=== PATIENT | female | born 1975 | race Caucasian/White ===

== ENCOUNTER → 2018-01-31 | Outpatient (CLI) | payer BC ==
[2018-01-31 09:57] LABS: BASO # 0.1 10^3/uL (0.0-0.2); BASO % 0.7 % (0.0-1.0); EOS # 0.2 10^3/uL (0.0-0.50); EOS % 3.2 % (0.0-3.0); HEMATOCRIT 40.3 % (36.0-47.0); HEMOGLOBIN 13.2 g/dl (12.0-15.5); IMMATURE GRANULOCYTE % 0.3 % (0-3.0); LYMPH # 1.6 10^3/uL (1.5-4.5); LYMPH % 21.4 % (24.0-44.0); MEAN CORPUSCULAR HEMOGLOBIN 30.3 pg (27.0-33.0); MEAN CORPUSCULAR HGB CONC 32.8 g/dl (32.0-36.5); MEAN CORPUSCULAR VOLUME 92.6 fl (80.0-96.0); MONO # 0.6 10^3/uL (0.0-0.8); MONO % 8.1 % (0.0-5.0); NEUTROPHILS # 4.9 10^3/uL (1.8-7.7); NEUTROPHILS % 66.3 % (36.0-66.0); PLATELET COUNT, AUTOMATED 171 10^3/uL (150-450); RED BLOOD COUNT 4.35 10^6/uL (4.00-5.40); RED CELL DISTRIBUTION WIDTH 13.2 % (11.5-14.5); WHITE BLOOD COUNT 7.4 10^3/uL (4.0-10.0)
[2018-01-31 10:18] LABS: ESTIMATED AVERAGE GLUCOSE 88 MG/DL (60-110); HEMOGLOBIN A1c 4.7 %
[2018-01-31 10:30] LABS: ERYTHROCYTE SEDIMENTATION RATE 2 mm/hr (0-20)
[2018-01-31 11:14] LABS: ALBUMIN 3.9 GM/DL (3.2-5.2); ALBUMIN/GLOBULIN RATIO 1.08 (1.00-1.93); ALKALINE PHOSPHATASE 61 U/L (45-117); ALT/SGPT 39 U/L (12-78); ANION GAP 8 MEQ/L (8-16); AST/SGOT 29 U/L (7-37); BILIRUBIN,TOTAL 0.4 MG/DL (0.2-1.0); BLOOD UREA NITROGEN 22 MG/DL (7-18); CALCIUM LEVEL 9.1 MG/DL (8.5-10.1); CARBON DIOXIDE LEVEL 22 MEQ/L (21-32); CHLORIDE LEVEL 113 MEQ/L (98-107); CREATININE FOR GFR 1.12 MG/DL (0.55-1.30); GLOMERULAR FILTRATION RATE 56.3 (>58); GLUCOSE, FASTING 71 MG/DL (70-100); POTASSIUM SERUM 4.6 MEQ/L (3.5-5.1); RHEUMATOID FACTOR QUANT < 10.0 IU/ML (<15.0); SODIUM LEVEL 143 MEQ/L (136-145); THYROID STIMULATING HORMONE 0.622 uIU/ML (0.358-3.740); TOTAL PROTEIN 7.5 GM/DL (6.4-8.2)
[2018-01-31 12:52] LABS: FOLATE > 24.0 NG/ML; VITAMIN B12 LEVEL 776 PG/ML
[2018-01-31 13:12] LABS: ALBUMIN 4.45 GM/DL (3.29-5.55); ALBUMIN % 59.3 % (55.8-66.1); ALPHA-1-GLOBULIN % 4.8 % (2.9-4.9); ALPHA-1-GLOBULINS 0.36 GM/DL (0.17-0.41); ALPHA-2-GLOBULINS 0.87 GM/DL (0.42-0.99); ALPHA-2-GLOBULINS % 11.6 % (7.1-11.8); BETA-1-GLOBULINS % 7.9 % (4.7-7.2); GAMMA GLOBULIN % 11.4 % (11.1-18.8)
[2018-01-31 13:13] LABS: BETA-1-GLOBULINS 0.59 GM/DL (0.28-0.60); BETA-2-GLOBULINS 0.38 GM/DL (0.19-0.55); GAMMA GLOBULINS 0.86 GM/DL (0.65-1.58)
[2018-02-01 09:52] LABS: DRVV SCREEN 45.6 SEC
[2018-02-01 09:53] LABS: PTT LUPUS TYPE ANTICOAG SCREEN 1.1 (0-1.2)
[2018-02-03 14:15] LABS: VITAMIN B1 LEVEL WHOLE BLOOD 198.7 nmol/L (66.5-200.0); VITAMIN B6,PYRIDOXAL PHOSPHATE 91.1 ug/L (2.0-32.8)
== END ==
LOC: M LAB 08:39
DX: G44.40 Drug-induced headache, not elsewhere classified, not intractable (principal); R41.3 Other amnesia
CPT/HCPCS: 82746

== ENCOUNTER → 2018-07-26 | Outpatient (CLI) | payer BC ==
[2018-07-27 10:28] LABS: HEPATITIS C VIRUS ABY INDEX < 0.0 INDEX (<0.8)
[2018-07-27 10:28] LABS: HEPATITIS B SURFACE ANTIBODY POSITIVE (POSITIVE); HIV 1&2 SCREEN CENTAUR NEGATIVE (NEGATIVE)
== END ==
LOC: M LAB 08:30
DX: Z11.3 Encounter for screening for infections with a predominantly sexual mode of transmission (principal)
CPT/HCPCS: 87340

== ENCOUNTER → 2018-07-28 | Outpatient (CLI) | payer BC | LOC: M LAB 12:01 | DX: Z11.3 Encounter for screening for infections with a predominantly sexual mode of transmission (principal) ==

== ENCOUNTER → 2019-03-23 | Outpatient (CLI) | payer BC ==
[~2019-03-23] MED LIST: ATIV1TAB10 PO; COQ-100C5 PO; CORL1.7T PO; CYCL10TA PO; GNP250TA9 PO; NADO40TA PO; PARAIUD IU; PROB250C PO; RA M500C PO; SERT-155 PO; TRAM50TA2 PO; VITA100018 PO; VITA100T98 PO; VITA500054 PO; ZONE1CAP PO
--- NOTE | 2019-03-26 12:57 | RADONC ---
RADIATION ONCOLOGY CONSULTATION NOTE DATE: 03/23/2019 CHART NUMBER: [id number] DIAGNOSIS: Left breast cancer. STAGE: T1c, N0, grade 3, ER positive, [place] positive, HER2 positive, who is presenting to us today status post lumpectomy and sentinel lymph node biopsy followed by re-excision and subsequent systemic therapy with paclitaxel weekly and Herceptin, who is scheduled for her last chemotherapy on April 07, and is now presenting to us for discussion of postoperative radiation therapy for conservative breast management. HISTORY OF PRESENT ILLNESS: The patient was in her usual state of health, until screening mammography was done on 09/23/2018. This showed suspicious microcalcifications in the left breast. Subsequent imaging confirmed the suspicious area in the upper outer quadrant of the left breast. The patient subsequently underwent a left breast biopsy on 10/14/2018, which showed invasive ductal carcinoma which was poorly differentiated. On 11/14/2018, the patient underwent lumpectomy and sentinel lymph node biopsy. Pathology revealed a 1.5 cm, poorly differentiated invasive ductal carcinoma. No lymph vascular invasion was identified. The distance to the closest margin was less than 0.5 mm. A total of four sentinel lymph nodes were sampled, and all were negative for metastatic disease. The tumor was estrogen receptor and progesterone receptor positive and HER2 positive as well. On 12/05/2017, the patient underwent re-excision, and no residual malignancy was found. Subsequent to surgery, the patient was seen by medical oncology and has been treated with weekly paclitaxel and Herceptin daily q. 3 weeks. She is scheduled for her last paclitaxel on April 07 and is now presenting to us for consideration of postoperative radiation therapy in an attempt to achieve local control. PAST MEDICAL HISTORY: The patient's past medical history is positive for cardiomyopathy, general heart disease, and hypertension. ALLERGIES: The patient is ALLERGIC to PENICILLIN. SOCIAL HISTORY: The patient quit smoking in 2014. She had smoked half-a-pack of cigarettes per day for 5 or 10 years. She does not abuse alcohol. FAMILY HISTORY: The patient's family history is positive for grandfather with mesothelioma. REVIEW OF SYSTEMS: The patient's review of systems is positive for occasional dizziness and headaches as well as decreased energy. It is otherwise noncontributory. She denies nausea, vomiting, fevers, chills, night sweats, diplopia, headaches, anxiety or depression, anorexia, weight loss, visual disturbances, chest pain, urinary or bowel difficulties, bone pain, or neurological problems. PHYSICAL EXAMINATION: The patient is a well-developed, well-nourished female in no acute distress. HEENT exam is normocephalic, atraumatic. Extraocular movements are intact. There is no palpable cervical, supraclavicular, infraclavicular, axillary, or inguinal lymphadenopathy present. Lungs are clear to auscultation and percussion. Heart has a regular rate and rhythm. Abdomen is benign with no hepatosplenomegaly, masses, or tenderness. Breast examination reveals no masses or discharge bilaterally. Skeletal examination reveals no tenderness to pressure or percussion of the bony skeleton. Extremities reveal no clubbing, cyanosis, or edema. Neurologic exam is grossly intact, as is the remainder of the physical examination. ASSESSMENT: Clearly, the patient is a candidate for external beam radiation therapy, and I have so informed her. I have discussed with the patient in detail the potential benefits as well as possible acute and chronic sequelae of external beam radiation therapy. We discussed the logistics of treatment planning, simulation, subsequent fractionated daily radiation treatments. I have scheduled the patient for simulation, approximately 2-3 weeks following her last paclitaxel treatment. Subsequent treatment planning will be undertaken, and radiation will begin after that. Thank you for allowing us to participate in the care of this very pleasant woman. If I could be of any further assistance or provide you with any information, please feel free to contact me anytime. cc: MD Ralph Ahuja MD Nancy Spicer, HAILEY Dean DO
== END ==
LOC: M ONCR 09:01
PROVIDERS: ATTEND Radiology Radiation Oncology
DX: C50.912 Malignant neoplasm of unspecified site of left female breast (principal); Z92.21 Personal history of antineoplastic chemotherapy

== ENCOUNTER 2019-05-01 10:21 | Outpatient (RCR) | payer BC ==
[~2019-05-01 10:21] MED LIST changes: +PARA1IUD IU; -PARAIUD IU; -SERT-155 PO; +SERT50TA29 PO
--- NOTE | 2019-05-02 08:30 | RADONC ---
RADIATION ONCOLOGY SIMULATION NOTE DATE: 05/01/2019 Chart #: [id number] DIAGNOSIS: Left breast cancer. STAGE: I C, N0M0, grade 3, ER positive, [place] positive, HER2/tuyet positive. SIMULATION NOTE: Mr. Nelson was taken to the CT scan for CT simulation of her left breast field. CT was accomplished without difficulty or discomfort. Radiation treatment planning is underway and radiation treatments will begin subsequently. An immobilization device was created without difficulty or discomfort. It will be used throughout the course of treatment. I was physically present throughout the course of CT simulation.
== END 2019-05-03 ==
LOC: M ONCR 10:21
PROVIDERS: ATTEND Radiology Radiation Oncology
DX: C50.912 Malignant neoplasm of unspecified site of left female breast (principal)

== ENCOUNTER 2019-06-02 10:53 | Outpatient (RCR) | payer BC ==
--- NOTE | 2019-05-17 09:43 | RADONC ---
RADIATION ONCOLOGY PROGRESS NOTE DATE: 05/15/2019 CHART NUMBER: [id number] PROGRESS NOTE: Ms. Nelson with a diagnosis of left breast cancer stage I C, grade 3, ER, [place] and HER2/tuyet positive is currently receiving local regional radiotherapy. Her dose to date is 720 cGy of a proposed 4860 cGy. She has no complaints referable to her disease or to her radiation therapy. REVIEW OF SYSTEMS: She denies any nausea, vomiting, coughing, sputum production, or hemoptysis. Her energy level is diminished because she is receiving Taxol and Herceptin. She denies any skin irritation or bone pain. Her energy level is such that she is able to maintain most day-to-day activities without any alteration of her lifestyle. EXAMINATION FINDINGS; She is a well-nourished, well-developed female, in no acute distress. Skin: Skin within the irradiated volume shows neither erythema nor desquamation. Lymphatics: No palpable peripheral lymphadenopathy is appreciated. Lungs are clear. The remainder of the physical examination is unchanged. IMPRESSION: Tolerating therapy well. PLAN: Treatments to continue.
--- NOTE | 2019-05-24 14:42 | RADONC ---
RADIATION ONCOLOGY PROGRESS NOTE DATE: 05/22/2019 CHART NUMBER: [id number] PROGRESS NOTE: Ms. Nelson is presently at a dose of 1620 cGy to her left breast and is tolerating treatments quite well at this point with no complaints related to her radiation therapy. She is having no breast or bone pain. REVIEW OF SYSTEMS: The patient's review of systems is noncontributory. Denies nausea, vomiting, fevers, chills, night sweats, diplopia, headaches, anxiety or depression, anorexia, weight loss, visual disturbances, chest pain, urinary or bowel difficulties, bone pain, or neurological problems. PHYSICAL EXAMINATION: The patient's skin is in good condition with no evidence of moist or dry desquamation. The remainder of her physical exam remains unchanged. Ms. Nelson is tolerating treatments quite well and radiation will continue as scheduled.
--- NOTE | 2019-05-31 07:03 | RADONC ---
RADIATION ONCOLOGY PROGRESS NOTE DATE: 05/29/2019 CHART NUMBER: [id number] Ms. Jean is thus far at a dose of 2520 centigrade to her left breast and is tolerating treatments quite well at this point with no complaints related to her radiation therapy. REVIEW OF SYSTEMS: The patient's review of systems is noncontributory. She denies nausea, vomiting, fevers, chills, night sweats, diplopia, headaches, anxiety or depression, anorexia, weight loss, visual disturbances, chest pain, urinary or bowel difficulties, bone pain, or neurological problems. PHYSICAL EXAMINATION: The patient's skin is in good condition with no evidence of moist or dry desquamation. The remainder of her physical exam remains unchanged. Ms. Jean is tolerating treatments quite well and radiation will continue as scheduled.
[~2019-06-02 10:53] MED LIST changes: -PARA1IUD IU; +PARAIUD IU; +SERT-155 PO; -SERT50TA29 PO
== END 2019-06-03 ==
LOC: M ONCR 10:53
PROVIDERS: ATTEND Radiology Radiation Oncology
DX: C50.412 Malignant neoplasm of upper-outer quadrant of left female breast (principal)

== ENCOUNTER 2019-06-26 11:00 | Outpatient (RCR) | payer BC ==
--- NOTE | 2019-06-07 08:36 | RADONC ---
RADIATION ONCOLOGY PROGRESS NOTE DATE: 06/06/2019 CHART NUMBER: [id number] PROGRESS NOTE: Mrs. Nelson with a stage T1cN0, grade 3, ER positive, [place] positive, HER2/tuyet positive is presently receiving adjuvant radiation. Her current dose is Dictation ended
--- NOTE | 2019-06-07 09:23 | RADONC ---
RADIATION ONCOLOGY PROGRESS NOTE DATE: 06/06/2019 CHART NUMBER: [id number] Mrs. Nelson with a diagnosis of left breast cancer stage T1cN0, grade 3, ER positive, [place] positive, HER2/tuyet positive is currently receiving adjuvant radiotherapy. Her dose to date is 3420 cGy of her proposed 4860 cGy with a proposed boost thereafter. Thus far she appears to be doing relatively well with regards to her treatment and to her disease. She denies any significant problems such as nausea, vomiting, cough. Her energy level is satisfactory and she is able to maintain most day-to-day activities without any alteration of her lifestyle. Skin irritation is very minimal. Examination findings: The skin within the irradiated volume shows a minimal erythematous blush without focal desquamation. Lymphatics: There is no palpable peripheral lymphadenopathy. Lungs: Clear. The remainder of the physical examination is unchanged. IMPRESSION: Tolerating therapy well. PLAN: Treatments to continue. Thank you for allowing us the opportunity of participation in the management of this lady.
--- NOTE | 2019-06-10 13:01 | RADONC ---
RADIATION ONCOLOGY ELECTRON BEAM BOOST SIMULATION DATE: 06/09/2019 CHART NUMBER: [id number] Electron beam simulation to boost the area of the lumpectomy site. The patient was placed in her usual treatment position with her arms above her head and the area of lumpectomy site which we are intending to boost was outlined by me personally. A special serving molding device will be constructed in order to shape the treatment hines. The appropriate table locations and gantry angles were also well documented. The patient tolerated this procedure quite well with no significant untoward events. I was present during the entire electron beam simulation. She will receive her boost treatment to the lumpectomy scar site as per protocol.
--- NOTE | 2019-06-12 13:51 | RADONC ---
RADIATION ONCOLOGY PROGRESS NOTE DATE: 06/12/2019 CHART #: [id number] Cordell Jean with left breast cancer is currently receiving local regional radiotherapy and she has achieved a dose thus far of 4140 cGy of a proposed 4860 cGy. There will be a 1200 cGy boost given to the lumpectomy scar site thereafter. She is tolerating her therapy reasonably well with the exception of some skin erythema. She denies any nausea, vomiting, coughing, sputum production or hemoptysis. Her energy level is satisfactory and she is able to maintain most day-to-day activities without any alteration of her lifestyle. She does note skin irritation most prominent in the inframammary fold, but also in the upper outer quadrant of the left breast. The erythema is itchy and bothersome to the patient and she has been putting hydrocortisone cream and perhaps even some other ointments on the affected area, but they have been short lived and she was wondering if there were any other creams which are more effective. I have taken the liberty of calling in her prescription to [facility] for some Silvadene cream for her to use twice daily. The remainder of the review of systems is negative. EXAMINATION FINDINGS: The skin within the irradiated volume shows indeed an erythematous blush in the inframammary fold and in the upper outer quadrant of the left breast. There is no desquamation thus far, but it looks as though there will be before the completion of her radiotherapy. Therefore, we encourage her use of this antibiotic cream. There is no palpable peripheral lymphadenopathy. Lungs are clear. Heart: Regular. Abdomen: Without evidence of hepatomegaly, masses, deep abdominal tenderness. IMPRESSION: The patient appears to be tolerating her radiotherapy reasonably well. PLAN: We have ordered a prescription for Silvadene for the patient to use twice daily to prevent further progression and perhaps even to avoid any moist desquamation/infection.
--- NOTE | 2019-06-21 12:54 | RADONC ---
RADIATION ONCOLOGY PROGRESS NOTE DATE OF SERVICE: 06/19/2019 CHART NUMBER: [id number]. PROGRESS NOTE: Ms. Jean is presently at a dose of 5060 cGy to her left breast primary site and is tolerating treatments quite well at this point with no significant difficulties related to her radiation therapy. She does have some bilateral rib and knee discomfort. REVIEW OF SYSTEMS: The patient's review of systems is generally noncontributory except for some arthritic-type pain. She denies nausea, vomiting, fevers, chills, night sweats, diplopia, headaches, anxiety or depression, anorexia, weight loss, visual disturbances, chest pain, urinary or bowel difficulties, bone pain, or neurological problems. PHYSICAL EXAMINATION: The patient's skin shows erythema and tanning present. The remainder of her physical exam remains unchanged. Ms. Jean is tolerating treatments quite well, and radiation will continue as scheduled.
--- NOTE | 2019-06-27 16:27 | RADONC ---
RADIATION ONCOLOGY TREATMENT SUMMARY DATE: 06/26/2019 CHART NUMBER: [id number] DIAGNOSIS: Left breast cancer. STAGE: T1c, pN0, M0, grade 3, HER2/tuyet positive, ER positive, [place] positive. ECOG PERFORMANCE STATUS: 0 CONSULTATION NOTE: Ms. Nelson is a very pleasant, 43-year-old white female with the diagnosis of a stage T1c, N0, M0, ER positive, [place] positive, HER2/tuyet negative poorly differentiated invasive ductal carcinoma of the left breast who presented to us status post lumpectomy, sentinel lymph node biopsy followed by re-excision and subsequent systemic therapy with weekly paclitaxel and Herceptin for consideration of postoperative radiation therapy for conservative breast management. We treated the patient to her left breast for a total dose of 4860 cGy delivered in 27 fractions of 180 cGy each over 37 elapsed days from 05/10/2019 through 06/16/2019. The patient's left breast was treated on a linear accelerator utilizing a 3-D conformal technique with utilizing a 6X photon beam. Medial and lateral tangential hines were utilized. Following completion of 4860 cGy the entire left breast, the primary site was boosted for an additional 1200 cGy delivered in six fractions of 200 cGy each over seven elapsed days from 06/19/2019 through 06/26/2019. The primary site boost was treated on a linear accelerator utilizing a 12 MeV electron beam prescribed to the 90% isodose line via non phos technique. This brought the primary site to a total dose of 6060 cGy delivered in 33 fractions over 44 for elapsed days from 05/10/2019 through 06/26/2019. Ms. Nelson tolerated her treatments quite well and was able complete therapy as prescribed without interruption. The patient is scheduled to see me again in 1 month for further followup. She will also continue to be followed by her other physicians as well. cc: MD Ralph Ahuja MD Nancy Spicer, HAILEY Dean DO
== END 2019-07-03 ==
LOC: M ONCR 11:00
PROVIDERS: ATTEND Radiology Radiation Oncology
DX: C50.412 Malignant neoplasm of upper-outer quadrant of left female breast (principal)

== ENCOUNTER → 2019-07-26 | Outpatient (CLI) | payer BC ==
[~2019-07-26] MED LIST changes: +PARA1IUD IU; -PARAIUD IU; -SERT-155 PO; +SERT50TA29 PO
--- NOTE | 2019-07-27 08:41 | RADONC ---
RADIATION ONCOLOGY FOLLOWUP NOTE DATE: 07/26/2019 CHART NUMBER: [id number] DIAGNOSIS: Left breast cancer. STAGE: T1c pathologic N0, M0, grade 3, HER2/tuyet positive, ER positive, [place] positive. ECOG PERFORMANCE STATUS: 0 FOLLOWUP NOTE: The patient returns from having received adjuvant left breast radiotherapy. She claims that things have been going well as she feels her energy has significantly improved and she denies any nausea, vomiting, coughing, sputum production or hemoptysis. Her energy level is such that she is able to maintain many day-to-day activities without any alteration of her lifestyle. Her skin has completely healed. EXAMINATION FINDINGS: The skin within the irradiated volume shows no evidence of erythema and certainly no focal desquamation. Lungs are clear to auscultation and percussion. Heart: Regular without murmurs. Abdomen: Without evidence of hepatomegaly, masses, deep abdominal tenderness. Breasts: Bilaterally symmetric with no palpable masses. Extremities: Without cyanosis, clubbing or edema. Neurologic: Examination grossly physiologic and nonfocal. IMPRESSION: The patient has done well with her radiation therapy with almost complete resolution of all skin irritation. She continues to see Mohini Paulson and Gold Dean and continues to receive Herceptin. She also sees India Peacock and Ralph Hirsch. We will see her on a p.r.n. basis at this clinic, but she was instructed to continue her routine followup visits with the aforementioned referring physicians. Thank you for allowing us the opportunity of participation in the management of this very cali patient. cc: MD Ralph Ahuja MD Nancy Spicer, HAILEY Dean, DO ABURTOD
== END ==
LOC: M ONCR 10:55
PROVIDERS: ATTEND Radiology Radiation Oncology
DX: C50.412 Malignant neoplasm of upper-outer quadrant of left female breast (principal); Z92.3 Personal history of irradiation

== ENCOUNTER → 2019-09-13 | Outpatient (REF) | payer BC ==
[2019-09-14 00:01] LABS: C REACTIVE PROTEIN QUANTITATIV < 0.30 MG/DL (0.00-0.30); RHEUMATOID FACTOR QUANT < 10.0 IU/ML (<15.0); URIC ACID 5.8 MG/DL (2.6-6.0)
[2019-09-16 00:08] LABS: ANTINUCLEAR ANTIBODIES DIRECT Negative (Negative); CYCLIC CITRULLINATED PEPTIDE 6 units (0-19)
== END ==
LOC: M LAB REF 17:04
PROVIDERS: ATTEND Nurse Practitioner Adult Health
DX: M19.90 Unspecified osteoarthritis, unspecified site (principal); M35.9 Systemic involvement of connective tissue, unspecified

== ENCOUNTER 2021-08-20 11:39 | Outpatient (CLI) | payer OTHER ==
[~2021-08-20] VITALS: Ht 165.1 cm; Wt 68.0 kg
[~2021-08-20 11:39] MED LIST changes: +ACETAMINOPHEN TAB 650MG DOSE (2X325MG) PO ONE; +ALBUTEROL 90 MCG/ACT 8GM HFA INHALER INH PRN; +ALBUTEROL SULFATE 2.5 MG/0.5 ML INH NEB SOLN INH PRN; +CASIRIVIMAB/IMDEVIMAB 1,200 MG in NS 250 ML IV ONE; +CYCL-707 PO; -CYCL10TA PO; +EPINEPHrine INJ 1 MG/ML 1ML AMP IM PRN; +NS 1,000 ML IV SCH; +diphenhydrAMINE 50MG CAP PO ONE; +diphenhydrAMINE 50MG/ML VIAL (J1200) IV PRN; +methylPREDNISolone 125MG 2ML VIAL IV PRN
[2021-08-20 12:07] VITALS: BP 117/60
[2021-08-20 12:37] VITALS: BP 120/63
[2021-08-20 13:07] VITALS: BP 115/56
[2021-08-20 14:07] VITALS: BP 126/60
== END 2021-08-20 14:07 | disposition home or self-care (01) ==
LOC: M OPCLI4PR 11:39
PROVIDERS: ATTEND Nurse Practitioner Adult Health
DX: U07.1 COVID-19 (principal); Z88.0 Allergy status to penicillin; Z91.040 Latex allergy status

== ENCOUNTER → 2021-11-19 | Outpatient (CLI) | payer OTHER ==
[~2021-11-19] MED LIST changes: -ACETAMINOPHEN TAB 650MG DOSE (2X325MG) PO ONE; -ALBUTEROL 90 MCG/ACT 8GM HFA INHALER INH PRN; -ALBUTEROL SULFATE 2.5 MG/0.5 ML INH NEB SOLN INH PRN; -CASIRIVIMAB/IMDEVIMAB 1,200 MG in NS 250 ML IV ONE; -EPINEPHrine INJ 1 MG/ML 1ML AMP IM PRN; -NS 1,000 ML IV SCH; -diphenhydrAMINE 50MG CAP PO ONE; -diphenhydrAMINE 50MG/ML VIAL (J1200) IV PRN; -methylPREDNISolone 125MG 2ML VIAL IV PRN
== END ==
LOC: M WUC 12:01
PROVIDERS: ATTEND Nurse Practitioner Adult Health
DX: R05.9 Cough, unspecified (principal)

== ENCOUNTER → 2023-01-04 | Outpatient (REF) | payer OTHER | LOC: M SFHCWAGY 17:48 | PROVIDERS: ATTEND Advanced Practice Midwife | DX: Z12.4 Encounter for screening for malignant neoplasm of cervix (principal); R87.610 Atypical squamous cells of undetermined significance on cytologic smear of cervix (ASC-US) | CPT/HCPCS: 87624; G0123 ==

== ENCOUNTER → 2023-02-02 | Outpatient (CLI) | payer OTHER | LOC: M WHC 10:31 | PROVIDERS: ATTEND Internal Medicine | DX: C50.412 Malignant neoplasm of upper-outer quadrant of left female breast (principal); M85.88 Other specified disorders of bone density and structure, other site; M85.851 Other specified disorders of bone density and structure, right thigh; M85.852 Other specified disorders of bone density and structure, left thigh ==

== ENCOUNTER → 2023-02-15 | Outpatient (REF) | payer OTHER | LOC: M SFHCWAGY 18:19 | PROVIDERS: ATTEND Obstetrics & Gynecology | DX: R87.620 Atypical squamous cells of undetermined significance on cytologic smear of vagina (ASC-US) (principal) ==

== ENCOUNTER → 2023-06-01 | Outpatient (REF) | payer OTHER | LOC: M SFHCWAGY 17:55 | PROVIDERS: ATTEND Advanced Practice Midwife | DX: N95.0 Postmenopausal bleeding (principal); Z85.3 Personal history of malignant neoplasm of breast ==

== ENCOUNTER → 2023-06-17 | Outpatient (CLI) | payer OTHER | LOC: M WHC 09:08 | PROVIDERS: ATTEND Advanced Practice Midwife | DX: N95.0 Postmenopausal bleeding (principal) ==

== ENCOUNTER 2024-01-24 10:03 | Day surgery (SDC) | payer OTHER ==
[~2024-01-24] VITALS: Ht 160 cm; Wt 77.9 kg
[~2024-01-24 10:03] MED LIST changes: -NADO40TA PO; +NADO40TA6 PO
[2024-01-24 10:42] LABS: HEMATOCRIT 39.5 % (36.0-47.0); HEMOGLOBIN 13.2 g/dl (12.0-15.5); MEAN CORPUSCULAR HEMOGLOBIN 31.7 pg (27.0-33.0); MEAN CORPUSCULAR HGB CONC 33.4 g/dl (32.0-36.5); MEAN CORPUSCULAR VOLUME 94.7 fl (80.0-96.0); PLATELET COUNT, AUTOMATED 129 10^3/uL (150-450); RED BLOOD COUNT 4.17 10^6/uL (4.00-5.40); WHITE BLOOD COUNT 6.7 10^3/uL (4.0-10.0)
[2024-01-24] MEDS ORDERED: LR 1,000 ML IV SCH (10:50)
[2024-01-24] MEDS ORDERED: HYDROmorphone HCL 2MG/ML 1ML VIAL As Ordered ONE (14:49)
[2024-01-24] MEDS ORDERED: ONDANSETRON 4MG 2ML VIAL As Ordered ONE (14:50)
[2024-01-24] MEDS ORDERED: MIDAZOLAM INJ 2MG/2ML VIAL As Ordered ONE (14:50)
[2024-01-24] MEDS ORDERED: KETOROLAC 60MG 2ML VIAL As Ordered ONE (14:50)
[2024-01-24] MEDS ORDERED: ROCURONIUM BROMIDE 50MG/5ML VIAL As Ordered ONE (14:50)
[2024-01-24] MEDS ORDERED: LIDOCAINE 2% 100MG/5ML SDV (FOR ANES.) As Ordered ONE (14:50)
[2024-01-24] MEDS ORDERED: fentaNYL 100 MCG/2 ML INJECTION As Ordered ONE (14:50)
[2024-01-24] MEDS ORDERED: SUGAMMADEX SODIUM 500 MG/5 ML VIAL (BRIDION) As Ordered ONE (14:50)
[2024-01-24] MEDS ORDERED: propofoL 200 MG/20 ML VIAL As Ordered ONE (14:50)
[2024-01-24] MEDS: CIPROFLOXACIN 400 MG in IV 1 EA IV ONE (16:00)
[2024-01-24] MEDS: metroNIDAZOLE 500 MG in IV 1 EA IV ONE (17:11)
[2024-01-24] MEDS: METHYLENE BLUE 0.5% (5MG/ML) 10 ML AMP (PROVAYBLUE) As Ordered ONE (17:42)
[2024-01-24] MEDS ORDERED: ONDANSETRON 4MG 2ML VIAL IV PRN (18:10)
[2024-01-24] MEDS ORDERED: fentaNYL 100 MCG/2 ML INJECTION IV PRN (18:10)
[2024-01-24] MEDS ORDERED: oxyCODONE 5MG TAB PO PRN (18:10)
[2024-01-24] MEDS ORDERED: MORPHINE 2 MG/ML 1ML VIAL IV PRN (18:10)
[2024-01-24 18:53] VITALS: BP 147/75; TEMP 98.5; O2SAT 97
== END 2024-01-24 19:45 | disposition home or self-care (01) ==
LOC: M SDC 10:03
PROVIDERS: ATTEND Obstetrics & Gynecology
DX: N95.0 Postmenopausal bleeding (principal); N80.03 Adenomyosis of the uterus; N88.8 Other specified noninflammatory disorders of cervix uteri; C50.912 Malignant neoplasm of unspecified site of left female breast; Z79.810 Long term (current) use of selective estrogen receptor modulators (SERMs); Z79.899 Other long term (current) drug therapy; Z88.0 Allergy status to penicillin; Z91.040 Latex allergy status
CPT/HCPCS: 36415; 58571; 85027; 86850; 86900; 86901; 88307; J0665; J0744; J1100; J1170; J1836; J1885; J2250; J2405; J3010; Q9968; S2900

== ENCOUNTER → 2024-03-21 | Outpatient (CLI) | payer OTHER | LOC: M WUC 10:44 | PROVIDERS: ATTEND Nurse Practitioner Adult Health | DX: M25.561 Pain in right knee (principal); W19.XXXA Unspecified fall, initial encounter ==

== ENCOUNTER → 2024-09-11 | Outpatient (REF) | payer OTHER ==
[~2024-09-11] MED LIST changes: +NADO40TA40 PO; -NADO40TA6 PO
== END ==
LOC: M LAB REF 12:15
PROVIDERS: ATTEND Nurse Practitioner Adult Health
DX: Z79.899 Other long term (current) drug therapy (principal)

== ENCOUNTER → 2025-02-05 | Outpatient (CLI) | payer OTHER | LOC: M WHC 12:29 | PROVIDERS: ATTEND Internal Medicine | DX: Z13.820 Encounter for screening for osteoporosis (principal); C50.412 Malignant neoplasm of upper-outer quadrant of left female breast; M85.851 Other specified disorders of bone density and structure, right thigh; M85.852 Other specified disorders of bone density and structure, left thigh ==